=== PATIENT | male | born 1950 | race Caucasian/White ===

== ENCOUNTER 2018-07-07 10:42 | Observation (INO) | payer MEDICARE, BC, OTHER ==
[~2018-07-07] VITALS: Ht 170.2 cm; Wt 113.9 kg
[2018-07-07] VITALS (15 sets, daily range): BP systolic 112–188; BP diastolic 75–93
--- NOTE | ~2018-07-07 | H ---
[address] [address] HISTORY AND PHYSICAL Name: JAGJITVINEETMELITON Room: [address] [place]#: [id number] Admission: 07/07/18 Attend Phys: Rafi Beard MD, Discharge: 07/08/18 Date of : 52 Report #: [id number] THIS REPORT FOR: //name// Please refer to the History and Physical performed in the physician's office. By: 1201Medical Records Staff TOYA /POLLY
[~2018-07-07 10:42] MED LIST: ABILIFY 5 MG TAB5 MG PO; AMBIEN 5 MG TABL5 M1 PO; LOPRESSOR25 PO; REMERON15 MG PO; TRAZODONE HCL50 MG PO; WELLBUTRIN SR150 MG PO
[2018-07-07 11:49] LABS: HEMATOCRIT 44.4 % (42.0-52.0); HEMOGLOBIN 15.5 gm/dL (14.0-18.0); MCH 31.1 pg (26.0-34.0); MCHC 34.8 g/dL (28.0-37.0); MCV 89.2 fL (80.0-100.0); MPV 7.4 fl. (7.2-11.1); RBC 4.97 mil/uL (4.50-6.00); RDW-CV 14.7 % (10.5-14.5); WBC 7.9 thou/uL (4.0-11.0)
[2018-07-07 12:03] LABS: APTT 28.5 Seconds (25.0-31.3); PROTIME 10.7 Seconds (9.20-11.50)
[2018-07-07 12:08] LABS: ALBUMIN 3.9 g/dL (3.4-5.0); ALKALINE PHOSPHATASE 64 U/L (46-116); ANION GAP 10 mmol/L (7-16); BUN 15 mg/dL (7-18); CALCIUM 8.9 mg/dL (8.5-10.1); CHLORIDE 100 mmol/L (98-107); CHOLESTEROL 147 mg/dL (<200); CO2 26 mmol/L (21-32); GLUCOSE 115 mg/dL (70-99); HDL CHOLESTEROL 41 mg/dL (>40); LDL CHOLESTEROL 89 mg/dL (<100); POTASSIUM 4.3 mmol/L (3.5-5.1); SGOT 23 U/L (15-37); SGPT 32 U/L (30-65); SODIUM 136 mmol/L (136-145); TC:HDL 3.6 Ratio (Not establshd); TOTAL BILIRUBIN 0.8 mg/dL (<0.1-1.0); TOTAL PROTEIN 7.6 g/dL (6.4-8.2); TRIGLYCERIDE 87 mg/dL (<150); VLDL 17 mg/dL (<40)
[2018-07-07 12:10] LABS: SERUM ASSESSMENT Clear
--- NOTE | 2018-07-07 16:37 | EKG ---
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1950 Requested By: Rafi Beard Order Number: [id number] Reading MD: Alfredito Kaplan Measurements Intervals [place] Rate: 73 P: -1 CO: 203 QRS: -24 QRSD: 73 T: 25 QT: 375 QTc: 414 Interpretive Statements Sinus rhythm Inferior infarct, old Baseline wander in lead(s) III,aVL,aVF,V3,V4,V5 Compared to ECG 12/08/2015 13:45:04 Myocardial infarct finding now present Poor R-wave progression no longer present Electronically Signed On 07-07-2018 16:37:25 CDT by Alfredito Kaplan [email or web address] <ELECTRONICALLY SIGNED> By: Alfredito Kaplan MD, FACC 07/07/18 1637 1150 1150 Alfredito Kaplan MD, FAC /EPI
--- NOTE | 2018-07-07 19:07 | NUR ---
PT TRANSFERED TO UNIT AT 1730 FROM PRODUCT MANAGENT INTERN AND IS ON CATH PRECAUTIONS UNTIL 2229 THAT PT IS NON-COMPLIANT WITH. PT HAS L GROIN SITE WITH GAUZE AND TEGADERM THAT IS SOFT AND CDI AT THIS TIME, BUT PT IS CONSISTANTLY MOVING LEG AND AT ONE POINT SET OFF THE BED ALARM OFF TRYING TO GO TO THE BATHROOM. PT RE-EDUCATED TO CALL OUT FOR RESTROOM NEEDS AND HAS A CARVALHO IN PLACE WITH A STAT LOCK PLACED. PT SR ON THE MONITOR AND STILL REPORTS 2/10 CHEST PAIN THAT THE PRODUCT MANAGENT INTERN STATED WAS OKAY AT THIS TIME. PT CURRENTLY ON BEDPAN AT THIS TIME AND WAS EDUCATED AGAIN TO KEEP HIS LLE STRAIGHT AND NOT TO USE ABD MUSCLES TO SIT UP IT CAN INCREASE BLEEDING RISK. PT TOLERATED CARDIAC DIET FOR DINNER AT THIS TIME. WILL CONTINUE TO MONITOR AND WILL PASS OFF TO NOC SHIFT.
--- NOTE | 2018-07-07 20:00 | NUR ---
RECEIVED REPORT AND ASSUMED CARE OF PT, ASSESSMENT COMPLETED. PT VERY AGITATED AND NON-COMPLIANT. INSTRUCTED MULTIPLE TIMES TO KEEP LT LEG STRAIGHT. PT BENDING LT LEG AT HIP AND USING PRESSURE TO PULL SELF UP IN BED. PT PLACED HIMSELF ON BEDPAN WHILE MOVING AROUND CONSTANTLY IN BED, PT ANGRY BECAUSE OF NOT ALLOWED OUT OF BED. FOUND PT STANDING AT BEDSIDE TWICE. STOOL SMEARED ALL OVER SHEETS. EXPLAINED IF ALLOWED TO ASSIST THIS WOULD NOT HAVE HAPPENED. PT BECOMING AGGRESSIVE AT TIMES. EXPLAINED ABOUT LT GROIN SITE COULD EASILY BUST OPEN AND IF THIS WOULD HAPPEN PT COULD BLEED TO . PT NOT RECEPTIVE TO THIS STATING IT'S NOT THAT DANGEROUS OR THEY WOULDN'T BE DOING THIS SURGERY. LT GROIN SITE REMAINS INTACT WITHOUT HEMATOMA OR DRAINAGE. TELEMTRY ON SHOWING SR. WILL CONT TO MONITOR.
--- NOTE | 2018-07-07 22:45 | NUR ---
CARVALHO CATHETER REMOVED WITHOUT INCIDENT. PT MUCH CALMER AND SOMEWHAT MORE COOPERATIVE SINCE PO PAIN MED GIVEN. LT GROIN CONT TO BE CLEAN, DRY AND INTACT. ASSISTED PT OUT OF BED AND AMBULATING IN HALLWAY. GAVE PT THE RESPONSIBLITY OF GROIN CHECKS AFTER ACTIVITY ALONG WITH MY CHECKS.
[2018-07-08] VITALS: BP 141/75
[2018-07-08 04:00] VITALS: BP 143/64
[2018-07-08 05:06] LABS: HEMATOCRIT 41.5 % (42.0-52.0); HEMOGLOBIN 14.2 gm/dL (14.0-18.0); MCH 30.4 pg (26.0-34.0); MCHC 34.2 g/dL (28.0-37.0); MCV 88.8 fL (80.0-100.0); MPV 7.8 fl. (7.2-11.1); RBC 4.68 mil/uL (4.50-6.00); RDW-CV 14.4 % (10.5-14.5); WBC 8.1 thou/uL (4.0-11.0)
--- NOTE | 2018-07-08 05:30 | NUR ---
PT CONT TO BE AGITATED AND NON-COMPLIANT. STATES HE WANTS THE IV OUT, EXPLAINED FLUIDS WOULD BE COMPLETED AT APPROX 0600 BUT LOCK WOULD STAY IN. STATES HE IS NOT GOING TO EAT BREAKFAST, TOLD HIM THAT WAS HIS CHOICE. AMBULATED IN HALLWAY WITH STEADY GAIT. PO PAIN MEDS X2 EFFECTIVE. GROIN REMAINS INTACT, NO REDNESS, EDEMA OR DRAINAGE. TELEMETRY CONT TO SHOW SR. HS GOALS OF REST AND SAFETY ACHIEVED. HOURLY ROUNDING OBSERVED.
[2018-07-08 05:33] LABS: ALBUMIN 3.4 g/dL (3.4-5.0); CALCIUM 8.3 mg/dL (8.5-10.1); POTASSIUM 3.8 mmol/L (3.5-5.1); TOTAL BILIRUBIN 0.9 mg/dL (<0.1-1.0); TOTAL PROTEIN 6.8 g/dL (6.4-8.2); TROPONIN-I LEVEL 0.51 ng/mL (<0.06)
[2018-07-08 08:00] VITALS: BP 144/93
[2018-07-08 09:29] VITALS: BP 144/93
[2018-07-08] MEDS ORDERED: EFFIENT10 MG PO (10:02)
[2018-07-08] MEDS ORDERED: ASPIR 8181 MG PO (10:06)
[2018-07-08 10:07] VITALS: BP 165/92
[2018-07-08] MEDS ORDERED: NITROGLYCERIN0.4 MG SUBLING (10:07)
[2018-07-08] MEDS ORDERED: ATORVASTATIN CA40 MG PO (10:18)
--- NOTE | 2018-07-08 11:24 | CARD ---
[address] [address] CARDIAC CATH REPORT Name: GEREMIAS DANIELSON Room: [place] [address] [place] Jacques#: [id number] Admission: 07/07/18 Attend Phys: Rafi Beard MD, Discharge: 07/08/18 Date of : 52 Report #: [id number] THIS REPORT FOR: //name// APPROVED REPORT Study performed: 07/07/2018 13:54:54 Patient Details Patient Status: Out-Patient Room #: The patient is a 67 year-old male Event Personnel Dr. Beard Procedures Performed Left heart catheterization selective coronary arteriography and percutaneous coronary intervention with stenting of the proximalmid LAD and angioplasty of the first diagonal branch Indication Unstable angina Risk Factors Obesity, Hypercholesterolemia, Hypertension, Diabetes Admission/Lab Medications/Medications given during procedure Aspirin, Platelet Aff. Inhib. Procedure Narrative The patient was brought electively to the Cardiac Catheterization Laboratory and was prepped and draped in a sterile manner. The left femoral was infiltrated with 2% Lidocaine subcutaneous anesthesia. A 6 Malay sheath was inserted into the left femoral artery. Coronary angiography was performed using coronary diagnostic catheters. The right coronary system was accessed and visualized with a Diagnostic catheter. The left coronary system was accessed and visualized with a Diagnostic catheter. Pre-demployment femoral angiogram was performed . Closure device was deployed with a 6 Fr Angioseal. There was no hematoma. Coronary Angiography The patient's coronary anatomy is right dominant. Diagnostic Cath Left Main 0% narrowing [facility] [address] [place] [address] CARDIAC CATH REPORT Name: GEREMIAS DANIELSON Room: [address] MСветлана.#: [id number] Admission: 07/07/18 Attend Phys: Rafi Beard MD, Discharge: 07/08/18 Date of : 52 Report #: [id number] LAD Tandem 75% proximal LAD stenoses with 80% ostial and mid first diagonal stenosis Circumflex 40% mid vessel narrowing with 80% stenosis of the midportion of a small second marginal branch Right Coronary Dominant vessel which is totally occluded in its midportion with sagh-me-exzby collaterals filling the distal right coronary system Left Ventriculography Left Ventriculography was not performed. Hemodynamics The aortic pressure is 125/70 mmHg with a mean of 82 mmHg. The left ventricular pressure is problem 50/13 end-diastolic mmHg with a mean of mmHg. Pullback from the left ventricle to the aorta revealed a 25 mm gradient across the aortic valve. PCI Technique Lesion Anticoagulation was achieved with Angiomax. Percutaneous coronary intervention was performed on the proximal LAD. The lesion stenosis prior to intervention was 75% with LOBO 3 flow. A 6 Malay XB 3.5 Guide Catheter was used to engage the left ostium. A 014 BMW Interventional Guidewire was used to cross the lesion. BALLOON DILATION A Balloon catheter 2.75 x 12 trek was inserted and inflated up to 17atm for 15seconds. STENT DEPLOYMENT A drug-eluting stent 2.75 x 18 mm Xience was inserted and inflated up to 18atm for 15seconds. Final angiography reveals 0 % stenosis with LOBO 3 flow. PCI Technique Lesion 2 Percutaneous Coronary Intervention was performed on the first diagonal branch of the LAD. The lesion stenosis prior to intervention was 80% with LOBO 3 flow. A 014 prowater flex Interventional Guidewire was used to cross the lesion. Balloon Dilation A Balloon catheter 2.25 x 12 trek, 2.25x8 nc trek-20 was inserted and inflated up to 16-20atm for 15seconds. Final angiography reveals 30 % stenosis with LOBO 3 [place] [address] CARDIAC CATH REPORT Name: GEREMIAS DANIELSON Room: [address] [place] Jacques#: [id number] Admission: 07/07/18 Attend Phys: Rafi eBard MD, Discharge: 07/08/18 Date of : 52 Report #: [id number] Conclusion #1 significant coronary artery disease characterized by the following: A 75% tandem proximal LAD stenosis with 80% ostial and mid first diagonal stenosis B 40% narrowing of the midportion of the nondominant circumflex with 80% stenosis of the midportion of a small second marginal branch C dominant right coronary artery which is totally occluded in its midportion with jlbb-jf-iphwt collaterals filling the distal right coronary artery #2 mild aortic stenosis with a peak to peak transaortic valvular systolic pressure gradient of 25 mmHg #3 successful percutaneous coronary intervention with deployment of drug-eluting stent at the site of tandem 75% proximal LAD stenoses with 0% residual narrowing #4 successful percutaneous transluminal coronary angioplasty at the site of tandem 80% ostial and mid first diagonal stenosis with 30% residual narrowing following final dilatation and LOBO-3 flow to the distal vessel Recommendations Cardiac Risk Reduction Program Aggressive Medical Therapy Medications Administered Aspirin (any) Prasugrel Diagnostic Cath Approved by: Rafi Beard MD Date/Time: 07/08/2018 11:21:07 <ELECTRONICALLY SIGNED> By: Rafi Beard MD, FACC 07/08/18 1123 1123 1123Rafi Beard MD, FACC /INF
--- NOTE | 2018-07-09 11:34 | EKG ---
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1950 Requested By: Rafi Beard Order Number: [id number] Reading MD: Alfredito Kaplan Measurements Intervals [place] Rate: 70 P: 39 CA: 213 QRS: -18 QRSD: 79 T: 29 QT: 389 QTc: 420 Interpretive Statements Sinus rhythm Borderline prolonged CA interval Inferior infarct, old Compared to ECG 07/07/2018 11:50:07 No significant changes Electronically Signed On 07-09-2018 11:33:48 CDT by Alfredito Kaplan [email or web address] <ELECTRONICALLY SIGNED> By: Alfredito Kaplan MD, [facility] 07/09/18 1133 1659 1659 Alfredito Kaplan MD, [facility] /EPI
--- NOTE | 2018-07-09 11:38 | EKG ---
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
--- NOTE | 2018-07-10 12:50 | NUR ---
Cardiac Rehab. Patient has agreed to start OPCR on 07/18/2018 at 7am.
--- NOTE | 2018-07-13 13:47 | D ---
[address] [address] DISCHARGE SUMMARY Name: GEREMIAS DANIELSON Room: [address] [place] MWilberto#: [id number] Admission: 07/07/18 Attend Phys: Rafi Beard MD, Discharge: 07/08/18 Date of : 52 Report #: [id number] THIS REPORT FOR: //name// CC: Mone Gamez MD DATE OF SERVICE: 07/08/2018 FINAL DISCHARGE DIAGNOSES: 1. Unstable angina. 2. Coronary artery disease. 3. Status post percutaneous coronary intervention of the LAD and first diagonal. 4. Hypertension. 5. Hyperlipidemia. 6. Mild aortic stenosis. 7. Exogenous obesity. PROCEDURES: 07/07/2018 -- left heart catheterization, selective coronary arteriography and percutaneous coronary intervention of the LAD and first diagonal. HOSPITAL COURSE: The patient is a pleasant 67-year-old male who presented to Dr. Gamez earlier this week with chest pain, strongly suggestive of angina following an unstable course. He had risk factors including hypertension and hyperlipidemia as well as weight excess. In this context, I have performed cardiac catheterization on the patient on 07/07/2018. That study revealed tandem 75% proximal LAD stenosis with 70% ostial and 80% mid first diagonal stenosis. The right coronary artery was totally occluded with left to right collaterals filling the distal right coronary artery. There was 80% stenosis of a small second marginal branch of the circumflex. On pullback, there was a 20-25 mm gradient across the aortic valve, [id number]. Given this data, I performed percutaneous coronary intervention, dilating the ostial and mid portion of the diagonal and stenting the LAD, deploying one 2.75 x 18 mm Xience Lacie drug-eluting stent in the LAD with 0% residual narrowing. I dilated the ostium and mid portion of the first diagonal with 40% residual narrowing in the diagonal. The patient did well post-procedurally. His troponin melania minimally to 0.51 units. Sodium was 138, potassium 3.8, BUN 14, creatinine 1.0, glucose 118. Hemoglobin 14.2, white blood cell count 8100, with 214,000 platelets. Cholesterol 147, HDL 41, LDL 89, triglycerides 87 mg percent. The patient ambulated in the hallways without difficulty and there was good hemostasis at the left femoral [place] [address] DISCHARGE SUMMARY Name: GEREMIAS DANIELSON Room: [place] [address] [place] Jacques#: [id number] Admission: 07/07/18 Attend Phys: Rafi Beard MD, Discharge: 07/08/18 Date of : 52 Report #: [id number] He was discharged to home in stable condition on the following medications: Abilify 5 mg daily, aspirin 81 mg daily, bupropion or Wellbutrin 150 mg b.i.d., metoprolol tartrate 25 mg daily, Remeron 15 mg at bedtime, prasugrel 10 mg daily with a 60 mg periprocedural loading dose given, trazodone or Desyrel 50 mg at bedtime, zolpidem 5 mg at bedtime, acetaminophen as needed for pain, and p.r.n. sublingual nitroglycerin. Followup was scheduled with Lydia Salamanca, our nurse practitioner on 07/14/[address] Gamez in 6-8 weeks with an echocardiogram for assessment of the magnitude of aortic stenosis suggested to be mild by the catheterization data as noted above. Therefore, the patient is discharged to home on the aforementioned medications with followup as iterated above. <ELECTRONICALLY SIGNED> By: Rafi Beard MD, FACC 07/13/18 1347 1004 2039Rafi Beard MD, FACC /nt
== END 2018-07-08 10:31 | disposition home or self-care (01) ==
LOC: M.CL 10:42 → M.TBA-CV 16:31 → M.2W 16:31
PROVIDERS: ADMIT Internal Medicine
DX: I25.110 Atherosclerotic heart disease of native coronary artery with unstable angina pectoris (principal); E78.00 Pure hypercholesterolemia, unspecified; I10 Essential (primary) hypertension; E11.9 Type 2 diabetes mellitus without complications; E78.5 Hyperlipidemia, unspecified; I35.0 Nonrheumatic aortic (valve) stenosis; E66.09 Other obesity due to excess calories; Z98.61 Coronary angioplasty status

== ENCOUNTER → 2018-11-21 | Outpatient (CLI) | payer MEDICARE, BC, OTHER ==
[~2018-11-21] MED LIST changes: +ASPIR 8181 MG PO; +ATORVASTATIN CA40 MG PO; +EFFIENT10 MG PO; +NITROGLYCERIN0.4 MG SUBLING
== END ==
LOC: M.ULTRA 12:07
DX: M79.662 Pain in left lower leg (principal); M79.89 Other specified soft tissue disorders

== ENCOUNTER → 2018-11-28 | Outpatient (CLI) | payer MEDICARE, BC, OTHER | LOC: M.MRI 11-16 17:30 | DX: I67.82 Cerebral ischemia (principal); E78.2 Mixed hyperlipidemia; I10 Essential (primary) hypertension; I25.10 Atherosclerotic heart disease of native coronary artery without angina pectoris ==

== ENCOUNTER 2019-10-07 12:01 | Observation (INO) | payer MEDICARE, BC ==
[~2019-10-07] VITALS: Ht 170.2 cm; Wt 112.5 kg
[~2019-10-07 12:01] MED LIST changes: -ATORVASTATIN CA40 MG PO; +LIPITOR40 MG PO; +REMERON15 M2 PO; -REMERON15 MG PO
[2019-10-07 12:04] VITALS: BP 138/78
[2019-10-07] MEDS ORDERED: CARVEDILOL12.5 MG PO (12:12)
[2019-10-07 12:29] LABS: ABSOLUTE BASOPHILS 0.1 thou/uL (0.0-0.2); ABSOLUTE EOSINOPHILS 0.2 thou/uL (0.0-0.7); ABSOLUTE LYMPHOCYTES 2.6 thou/uL (0.8-5.3); ABSOLUTE MONOCYTES 0.6 thou/uL (0.0-1.2); ABSOLUTE NEUTROPHILS 4.9 thou/uL (1.6-8.1); BASOPHILS 0.6 %; EOSINOPHILS 1.9 %; HEMOGLOBIN 12.1 gm/dL (14.0-18.0); MCH 33.3 pg (26.0-34.0); MCHC 35.5 g/dL (28.0-37.0); MCV 93.8 fL (80.0-100.0); MONOCYTES 7.2 %; MPV 7.1 fl. (7.2-11.1); NUCLEATED RBCS 0 /100WBC; PLATELET COUNT* 228 thou/uL (150-400); POLYS 59.3 %; RBC 3.62 mil/uL (4.50-6.00); RDW-CV 15.5 % (10.5-14.5); WBC 8.3 thou/uL (4.0-11.0)
[2019-10-07 12:40] LABS: CALCIUM 8.5 mg/dL (8.5-10.1); CREATININE 1.9 mg/dL (0.6-1.3); POTASSIUM 3.3 mmol/L (3.5-5.1)
[2019-10-07 12:44] LABS: APTT 23.4 Seconds (25.0-31.3); INR 1.1; PROTIME 11.2 Seconds (9.20-11.50)
[2019-10-07 12:50] LABS: ALBUMIN 3.7 g/dL (3.4-5.0); MAGNESIUM 2.1 mg/dL (1.8-2.4); TOTAL BILIRUBIN 0.8 mg/dL (<0.1-1.0); TOTAL PROTEIN 7.7 g/dL (6.4-8.2)
[2019-10-07 14:44] VITALS: BP 124/61
[2019-10-07 14:50] LABS: CHOLESTEROL 112 mg/dL (<200); HDL CHOLESTEROL 35 mg/dL (>40); LDL CHOLESTEROL 51 mg/dL (<100); SERUM ASSESSMENT Clear; TC:HDL 3.2 Ratio (Not establshd); TRIGLYCERIDE 131 mg/dL (<150); VLDL 26 mg/dL (<40)
[2019-10-07 14:55] VITALS: BP 112/60
--- NOTE | 2019-10-07 16:52 | NUR ---
RECIEVED REPORT ON PT FROM NICOLE DALLAS. PT ARRIVED ON UNIT FROM ER AROUND 1455. VS AND ASSESSMENT CHARTED. HISTORY AND HOME MEDS CHARTED. PT REPORTS NO CHEST PAIN. GIVEN 1 DOSE OF POTASSIUM PER PROTOCOL. IV FLUIDS RUNNING. IV IN RIGHT AC. NPO AT MIDNIGHT. HEART MONITOR ATTACHED. CALL LIGHT WITHIN REACH. WILL CONTINUE TO MONITOR.
[2019-10-07 20:00] VITALS: BP 107/62
[2019-10-08] VITALS: BP 131/67
[2019-10-08 04:00] VITALS: BP 128/61
[2019-10-08 05:04] LABS: HEMOGLOBIN 10.7 gm/dL (14.0-18.0); MCH 33.6 pg (26.0-34.0); MCHC 35.7 g/dL (28.0-37.0); MCV 94.2 fL (80.0-100.0); MPV 7.3 fl. (7.2-11.1); RBC 3.19 mil/uL (4.50-6.00); RDW-CV 14.9 % (10.5-14.5); WBC 8.4 thou/uL (4.0-11.0)
[2019-10-08 05:22] LABS: CALCIUM 7.8 mg/dL (8.5-10.1); CREATININE 1.6 mg/dL (0.6-1.3); POTASSIUM 3.8 mmol/L (3.5-5.1)
--- NOTE | 2019-10-08 06:05 | NUR ---
ASSUMED CARE OF PT AFTER REPORT AT 1930. PT A&OX4. VSS. PHYSICAL ASSESSMENT COMPLETED AND CHARTED. PT ON RA. PT TRACING SR/1ST DEG ON TELE. CIWA CHARTED. INSTRUCTED PT ON NPO POST MIDNIGHT FOR CARDIO CONSULT. COMMUNICATES UNDERSTANDING. CALL CANDY CALVIN.
[2019-10-08 08:00] VITALS: BP 114/60
--- NOTE | 2019-10-08 09:52 | EKG ---
[place] [address] ELECTROCARDIOGRAM REPORT Name: GEREMIAS DANIELSON Room: [address]#: [id number] Admission: 10/07/19 Attend Phys: Rosana Medina, Discharge: Date of : 52 Date of Service: 10/07/19 1206 Report #: [id number] THIS REPORT FOR: //name// 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 : 1950 Requested By: Johann Monsalve Order Number: [id number] MD: Jaden Rosado Measurements Intervals [place] Rate: 59 P: 42 MI: 226 QRS: -13 QRSD: 85 T: 66 QT: 427 QTc: 423 Interpretive Statements Sinus rhythm artifact noted Prolonged MI interval Inferior infarct, old Compared to ECG 07/08/2018 08:34:27 First degree AV block now present Myocardial infarct finding still present Electronically Signed On 10-08-2019 9:52:37 CDT by Jaden Rosado [email or web address] <ELECTRONICALLY SIGNED> By: Jaden Rosado MD, FAC 10/08/19 0952 1206 1206 Jaden Rosado MD, FAC /EPI
--- NOTE | 2019-10-08 15:43 | NUR ---
Pt is A&O. Resides at home alone. Independent. No DME. No hx of HH or SNF. Hx of [facility] rehab. Pt to have a stress echo today. Renal following. Pt mentioned maybe needing SNF at dc, per nurse, Pt is up ad reilly, unsure if Pt will need SNF. Following.
[2019-10-08 16:24] VITALS: BP 130/61
[2019-10-08] MEDS ORDERED: IMDUR 30 MG TAB30 M1 PO (16:29)
[2019-10-08] MEDS ORDERED: TRIAMTERENE/HCT1 CA1 PO (16:30)
[2019-10-08] MEDS ORDERED: EFFEXOR XR75 MG PO (16:30)
[2019-10-08 16:35] VITALS: BP 130/61
--- NOTE | 2019-10-08 18:01 | NUR ---
DC ORDERS RECEIVED. IV AND MONITOR REMOVED. CONTACTED PT. PHARM TO [facility]IR[facility] HOME MED LIST. LIST UPDATED AND COPY GIVEN FOR DAUGHTER AT DC. PT. LEFT VIA PERSONAL VEHICLE TO RETURN HOME WITH DAUGHTER, ALL BELONGINGS ACCOUNTED FOR.
[2019-10-09 02:06] LABS: GLYCOHEMOGLOBIN (HGB A1C) 5.7 % (4.8-5.6)
--- NOTE | 2019-10-09 11:52 | EXE ---
[place] [address] STRESS ECHOCARDIOGRAM Name: GEREMIAS DANIELSON Room: [address] M.RBrittney#: [id number] Admission: 10/07/19 Attend Phys: Rosana Medina, Discharge: 10/08/19 Date of : 52 Date of Service: 10/09/19 1152 Report #: [id number] THIS REPORT FOR: cc: Jaden Alvarez MD, David L. MD Blick,Jaden Vo MD [facility] ~ ADDENDUM APPROVED REPORT Study performed: 10/08/2019 11:52:33 Exam: Dobutamine Stress Echo Indication: Dyspnea , Dizziness, CAD s/p PCI, Hypertension, Hyperlipidemia Patient Location: In-Patient Stress Nurse: Chanel Hernandez RN Supervising Physician: Jaden Rosado MD Ht: 5 ft 7 in HR: 66 bpm BP: 112/77 mmHg Medical History Allergies: No known drug allergies Cardiac Risk Factors: HTN, Hyperlipidemia, FHX of CAD Procedure The patient underwent a Pharmacological Stress Test using Dobutamine. Blood pressure, heart rate, and EKG were monitored. An Echocardiogram was performed by construction technician in four stages in quad fashion. At peak stress, four selected images were obtained and placed side by side with resting images for comparison. Echo Enhancing Agent Indication: Endocardial border delineation Agent(s) / Amount(s) Used: Optison cc Stress Test Details Stress Test: Pharmacological Stress Test using Dobutamine. Reason for pharmacologic stress test: physical limitation. HR Resting HR: 66 bpm Max Heart Rate (APMHR): 152 bpm Max HR Achieved: 142 bpm Target HR (85% APMHR): 129 bpm % of APMHR: 93 Recovery HR: 99 [place] [address] STRESS ECHOCARDIOGRAM Name: GEREMIAS DANIELSON [place] Room: [address] M..#: [id number] Admission: 10/07/19 Attend Phys: Rosana Medina, Discharge: 10/08/19 Date of : 52 Date of Service: 10/09/19 1152 Report #: [id number] HR response to stress: Normal HR response to stress BP Resting BP: 112/77 mmHg Max BP: 266/40 mmHg Recovery BP: 121/82 mmHg BP response to stress: Abnormal hypertensive response to stress. ECG Resting ECG: Sinus Rhythm Stress ECG: Sinus Tachycardia ST Change: Normal Maximum ST Deviation: 0 mm Arrhythmia: VPC's Recovery ECG: Sinus Rhythm Recovery ST Change: Normal Recovery ST Deviation: 0 mm Recovery Arrhythmia: None Clinical Reason for Termination: Completed protocol Exercise duration: 16 min 14 sec Exercise capacity: 1.00 METs Pre-Stress Echo The resting Echocardiogram showed normal left ventricular contractility with an estimated Ejection Fraction of about 55-60%. Post-Stress Echo The stress Echocardiogram showed normal left ventricular contractility with an estimated Ejection Fraction of about 65-70%. Compared to rest, there were no stress-induced wall motion abnormalities. Conclusion Clinical Response: Indeterminant Stress ECG Response: Non-ischemic Stress Echo Images: Non-ischemic low risk stress dobutimine echo for predicitng future cardiac events Other Information Study Quality: Technically Difficult Technically limited study due to uncooperative patientbody habitus. and [place] [address] STRESS ECHOCARDIOGRAM Name: GEREMIAS DANIELSON Room: [address]#: [id number] Admission: 10/07/19 Attend Phys: Rosana Medina, Discharge: 10/08/19 Date of : 52 Date of Service: 10/09/19 1152 Report #: [id number] <Conclusion> low risk stress dobutimine echo for predicitng future cardiac events <ELECTRONICALLY SIGNED> By: Jaden Rosado MD, [facility] 10/09/19 1152 115 115 Jaden Rosado MD, FACC /INF
--- NOTE | 2019-10-09 14:44 | CON ---
[address] [address] CONSULTATION Name: GEREMIAS DANIELSON Room: [address] [place]#: [id number] Admission: 10/07/19 Attend Phys: Rosana Medina MD Discharge: 10/08/19 Date of : 52 Report #: [id number] THIS REPORT FOR: //name// cc: Jaden Alvarez MD, David L. MD ~ THIS REPORT FOR: //name// CC: Jaden Medina DATE OF SERVICE: 10/07/2019 CARDIOLOGY CONSULTATION HISTORY OF PRESENT ILLNESS: The patient is a 69-year-old single white male who came to the Emergency Room yesterday complaining of fatigue. The patient has a history of coronary artery disease. He apparently had a coronary stent placed in 06/2018 here at [facility]. He has been followed by my partner, Dr. Gamez. He is not very active at this time because of his large size. He has fallen in the past. He apparently went out to breakfast yesterday with his daughter. While sitting at the restaurant, he felt weak and lightheaded. He felt a pressure in his chest. He denied any palpitations. Denied any recent fever or cough. He does get short of breath when he exerts himself. He has had no vomiting or diarrhea. He denied any leg swelling. PAST MEDICAL HISTORY: He has had previous hydrocele removal. He has a history of hypertension. PAST MEDICAL HISTORY: Otherwise significant for hypertension. MEDICATIONS: On admission included carvedilol, Remeron, trazodone, Effient, aspirin, Lipitor. ALLERGIES: He has no known drug allergies. FAMILY HISTORY: Negative for heart disease. SOCIAL HISTORY: He is , lives in [place]. He is retired. No smoking. Rarely drinks alcohol. REVIEW OF SYSTEMS: No history of stroke. He does snore at night. No history of asthma, liver disease, kidney disease, cancer, psychiatric illness, or chronic skin condition. PHYSICAL EXAMINATION: [place] [address] CONSULTATION Name: GEREMIAS DANIELSON Room: [address] Georgie#: [id number] Admission: 10/07/19 Attend Phys: Rosana Medina MD Discharge: 10/08/19 Date of : 52 Report #: [id number] GENERAL: Revealed a large male, lying in bed. He appeared in no distress. VITAL SIGNS: Blood pressure 138/78, his pulse was 90. HEENT: He was anicteric. Conjunctivae are pink. Mucous membranes are moist. NECK: Veins do not appear distended. No carotid bruits. CHEST: Clear to auscultation. CARDIOVASCULAR: Regular rate and rhythm. No murmurs. ABDOMEN: Obese. EXTREMITIES: Had no edema. Dorsalis pedis pulse 1+ bilaterally. SKIN: Cool and dry. NEUROLOGIC: Nonfocal. LABORATORY DATA: Workup in the Emergency Room, BUN 29 and creatinine 1.9. Liver function studies were normal. His troponin 0.06. Hemoglobin 12.1. Chest x-ray unremarkable. His ECG on admission while having chest pain showed sinus bradycardia, baseline wandering, but there was no significant ST or T-wave change noted. IMPRESSION AND RECOMMENDATIONS: 1. Chest pressure. Previous stent. Recommend stress echo. 2. Hypertension. The patient is on a beta juan j. Because of his vascular disease, I would consider an KRIS inhibitor. 3. Hyperlipidemia. The patient is on a statin drug. 4. Previous stent. Now that it has been more than 1 year following placement of the drug-eluting stent, I think it is reasonable to discontinue Effient at this time. 5. Obesity. 6. Snoring at night. I would consider sleep apnea. 7. Fatigue. Reason unclear. <ELECTRONICALLY SIGNED> By: Jaden Rosado MD, FACC 10/09/19 1444 0742 0809Daleandro Rosado MD, FACC /nt
== END 2019-10-08 18:00 | disposition home or self-care (01) ==
LOC: M.ERS 12:01 → M.TBA-ER 13:19 → M.2W 13:19
PROVIDERS: Emergency Medicine Emergency Medical Services; ADMIT Internal Medicine; ATTEND Internal Medicine
DX: Z03.818 Encounter for observation for suspected exposure to other biological agents ruled out (principal); R07.89 Other chest pain; I25.10 Atherosclerotic heart disease of native coronary artery without angina pectoris; F32.9 Major depressive disorder, single episode, unspecified; I10 Essential (primary) hypertension; F10.10 Alcohol abuse, uncomplicated; G91.9 Hydrocephalus, unspecified; Z79.82 Long term (current) use of aspirin; Z79.899 Other long term (current) drug therapy